=== PATIENT | male | born 1995 | race Caucasian/White ===

== ENCOUNTER 2017-09-01 00:11 | Emergency (ER) | payer OTHER ==
[2017-09-01 00:29] VITALS: BP 120/98; PULSE 59; TEMP 97.3; BMI 28.7
--- NOTE | 2017-09-01 00:49 | PDOC ---
History of Present Illness <Matt Morenoashleigh Vogt - Last Filed: 09/01/17 00:48> - History of Present Illness Initial Comments: 09/01/17 00:53 Patient is a 22M, with no significant PMHx, who presents with epigastric pain for 1 month. Patient states hes been having abdominal pain with associated nausea for 1 month but it has significantly worsened over the past couple of hours. Patient describes hie abdominal pain as a sharp, burning, twisting sensation that does not radiate. He has been prescribed Zantac by his PCP. Today he experienced 1 episode of vomit. Denies fever, chills, rhinorrhea, cough. PCP: Fantasma Esquivel Surgical Hx: denies Allergies: denies Social Hx: Marijuana use (2x/every 2 weeks) <Leeann Grissom - Last Filed: 09/01/17 00:53> <Nisha Brown - Last Filed: 09/01/17 05:58> - General Chief Complaint: Pain, Acute Stated Complaint: ABD PAIN Time Seen by Provider: 09/01/17 00:35 Past History - Suicide/Smoking/Psychosocial Hx Smoking History: Never smoked Have you smoked in the past 12 months: No Information on smoking cessation initiated: No Hx Alcohol Use: No Drug/Substance Use Hx: No Substance Use Type: None <Matt Morenoashleigh Vogt - Last Filed: 09/01/17 00:48> <Leeann Grissom - Last Filed: 09/01/17 00:53> <Nisha Brown - Last Filed: 09/01/17 05:58> - Past Medical History Allergies/Adverse Reactions: Allergies Allergy/AdvReac Type Severity Reaction Status Date / Time No Known Allergies Allergy Verified 09/01/17 00:27 Home Medications: Ambulatory Orders Ondansetron [Zofran Odt -] 4 mg SL TID #10 od.tablet 11/10/14 Ranitidine [Zantac -] 150 mg PO HS #10 tablet 11/10/14 Review of Systems - Review of Systems Comments:: 09/01/17 00:53 CONSTITUTIONAL: Absent: fever, no chills, no fatigue EYES: Absent: visual changes ENT: Absent: ear pain, no sore throat CARDIOVASCULAR: Absent: chest pain, no palpitations RESPIRATORY: Absent: cough, no SOB GI: Present: abdominal pain, nausea, vomit (1 episode) Absent: no constipation, no diarrhea GENITOURINARY: Absent: dysuria, no frequency, no hematuria MUSCULOSKELETAL: Absent: back pain, no arthralgia, no myalgia SKIN: Absent: rash NEURO: Absent: headache <Leeann Grissom - Last Filed: 09/01/17 00:53> *Physical Exam - Vital Signs Last Vital Signs Temp Pulse Resp BP Pulse Ox 97.3 F L 59 L 20 120/98 99 09/01/17 00:28 09/01/17 00:28 09/01/17 00:28 09/01/17 00:28 09/01/17 00:28 <Jennifer Moreno - Last Filed: 09/01/17 00:48> - Vital Signs Last Vital Signs Temp Pulse Resp BP Pulse Ox 97.3 F L 59 L 20 120/98 99 09/01/17 00:28 09/01/17 00:28 09/01/17 00:28 09/01/17 00:28 09/01/17 00:28 - Physical Exam Comments: 09/01/17 00:55 GENERAL: Well-appearing, well-nourished. No apparent distress. HEENT: Normocephalic, atraumatic. PERRL, EOM intact. CARDIOVASCULAR: Normal S1, S2. Regular rate and rhythm. PULMONARY: Clear to auscultation bilaterally. ABDOMEN: Soft, non-distended, non-tender.Epigastric discomfort. EXTREMITIES: Normal ROM in all four extremities. No gross deformities. SKIN: Warm, dry. No rash NEUROLOGICAL: No focal neurological deficits. <Leeann Grissom - Last Filed: 09/01/17 00:53> - Vital Signs Last Vital Signs Temp Pulse Resp BP Pulse Ox 97.3 F L 59 L 20 120/98 99 09/01/17 00:28 09/01/17 00:28 09/01/17 00:28 09/01/17 00:28 09/01/17 00:28 <Nisha Brown - Last Filed: 09/01/17 05:58> ED Treatment Course - LABORATORY CBC & Chemistry Diagram: 09/01/17 01:03 09/01/17 01:03 - ADDITIONAL ORDERS Additional order review: Laboratory Results 09/01/17 09/01/17 01:17 01:03 Sodium 141 Potassium 4.0 Chloride 103 Carbon Dioxide 31 Anion Gap 7 L BUN 17 Creatinine 1.0 D Creat Clearance w eGFR > 60 Random Glucose 100 Calcium 9.8 Total Bilirubin 2.0 H D AST 24 D ALT 41 D Alkaline Phosphatase 80 D Total Protein 8.2 Albumin 4.9 Lipase 256 Urine Color Yellow Urine Appearance Cloudy Urine pH 8.0 D Ur Specific [place] 1.023 Urine Protein Negative Urine Glucose (UA) Negative Urine Ketones Negative Urine Blood Negative Urine Nitrite Negative Urine Bilirubin Negative Urine Urobilinogen Negative Ur Leukocyte Esterase Negative 09/01/17 01:03 RBC 5.51 MCV 86.3 MCHC 33.7 RDW 13.5 MPV 8.9 Neutrophils % 65.9 Lymphocytes % 23.5 D Monocytes % 8.3 Eosinophils % 1.7 D Basophils % 0.6 - Medications Given in the ED: ED Medications Discontinued Medications Generic Name Dose Route Start Last Admin Trade Name Freq PRN Reason Stop Dose Admin Diphenhydramine HCl 25 mg 09/01/17 01:57 09/01/17 02:10 Benadryl Injection - IVPUSH 09/01/17 01:58 25 mg ONCE ONE Administration Metoclopramide HCl 10 mg 09/01/17 01:57 09/01/17 02:10 Reglan Injection - IVPUSH 09/01/17 01:58 10 mg ONCE ONE Administration Ondansetron HCl 4 mg 09/01/17 00:52 09/01/17 01:42 Zofran Injection IVPUSH 09/01/17 00:53 4 mg ONCE ONE Administration <Nisha Brown - Last Filed: 09/01/17 05:58> Medical Decision Making - Medical Decision Making 09/01/17 03:42 Patient Name: PEYMAN TURNER THIS IS A PRELIMINARY REPORT FROM [facility] DATE OF SERVICE: 2017-09-01 02:21:48 IMAGES: 44 EXAM: ABDOMEN US -LIMITED HISTORY: Epigastric pain and vomiting COMPARISON: None. FINDINGS: Fatty liver No echogenic gallstones, gallbladder wall thickening, or pericholecystic fluid Normal common bile duct The pancreas, aorta, and right kidney are unremarkable No ascites IMPRESSION: 1. Fatty liver, otherwise, unremarkable study THIS DOCUMENT HAS BEEN ELECTRONICALLY SIGNED 09/01/17 05:56 Pt states that he has epigastric pain. Imaging and exam and labs normal. Pt likely has gastritis. All he ate was sushi for the entire day yesterday. I explained to the patient that he is suffering with gastritis and that she should follow with GI specialist and take tums and start eating normal amounts of food form now on. <Nisha Brown - Last Filed: 09/01/17 05:58> *DC/Admit/Observation/Transfer <Jennifer Moreno - Last Filed: 09/01/17 00:48> <Leeann Grissom - Last Filed: 09/01/17 00:53> - Discharge Dispostion Admit: No <BrownNisha - Last Filed: 09/01/17 05:58> Diagnosis at time of Disposition: Nausea and vomiting, Gastritis - Discharge Dispostion Disposition: HOME Condition at time of disposition: Stable - Referrals Referrals: Fantasma Esquivel [Primary Care Provider] - Brad Morrell MD [Staff Physician] - - Patient Instructions Printed Discharge Instructions: Viral Gastroenteritis, [place] Diet, DI for Gastritis - Post Discharge Activity Forms/Work/School Notes: Back to Work
[2017-09-01] MEDS ORDERED: ONDANSETRON 4 MG/2 ML VIAL IVPUSH ONE (00:52)
[2017-09-01 01:21] LABS: BASO % 0.6 % (0-2.0); EOS % 1.7 % (0-4.5); HEMATOCRIT 47.6 % (35.4-49); LYMPH % 23.5 % (8-40); MCH 29.1 pg (25.7-33.7); MCHC 33.7 g/dl (32.0-35.9); MEAN CELL VOLUME 86.3 fl (80-96); MEAN PLT VOLUME 8.9 fl (7.5-11.1); MONO % 8.3 % (3.8-10.2); NEUT % 65.9 % (42.8-82.8); PLATELET COUNT 249 K/MM3 (134-434); RBC 5.51 M/mm3 (4.00-5.60); RDW 13.5 % (11.9-15.9); WHITE BLOOD COUNT 10.7 K/mm3 (4.0-10.0)
[2017-09-01] MEDS ORDERED: ONDANSETRON 4 MG/2 ML VIAL ONE (01:21)
[2017-09-01 01:48] LABS: URINE APPEARANCE CLOUDY; URINE BILIRUBIN NEGATIVE (NEGATIVE); URINE BLOOD NEGATIVE (NEGATIVE); URINE COLOR YELLOW; URINE GLUCOSE (UA) NEGATIVE (NEGATIVE); URINE KETONE NEGATIVE (NEGATIVE); URINE LEUK ESTERASE NEGATIVE (NEGATIVE); URINE NITRITE NEGATIVE (NEGATIVE); URINE PROTEIN NEGATIVE (NEGATIVE); URINE UROBILINOGEN NEGATIVE mg/dL (0.2-1.0)
[2017-09-01 01:54] LABS: ALBUMIN 4.9 g/dl (3.4-5.0); ALK PHOS 80 U/L (45-117); ANION GAP 7 (8-16); BLOOD UREA NITROGEN 17 mg/dL (7-18); CALCIUM 9.8 mg/dL (8.5-10.1); CHLORIDE 103 mmol/L (98-107); CO2 31 mmol/L (21-32); GLUCOSE,RANDOM 100 mg/dL (74-106); SGOT/AST 24 U/L (15-37); SGPT/ALT 41 U/L (12-78); SODIUM 141 mmol/L (136-145); TOT PROT 8.2 g/dl (6.4-8.2)
[2017-09-01] MEDS ORDERED: METOCLOPRAMIDE HCL INJECTION 10 MG/2 ML VIAL IVPUSH ONE (01:57)
[2017-09-01 02:02] LABS: LIPASE 256 U/L (73-393)
[2017-09-01] MEDS ORDERED: METOCLOPRAMIDE HCL INJECTION 10 MG/2 ML VIAL ONE (02:02)
== END 2017-09-01 04:14 | disposition home or self-care (01) ==
LOC: JER 00:11
PROC: 3E033GC Introduction of Other Therapeutic Substance into Peripheral Vein, Percutaneous Approach (ICD-10-PCS; principal; 2017-09-01)
DX: K29.70 Gastritis, unspecified, without bleeding (principal)
CPT/HCPCS: 36415; 76705-TC; 80053; 81003; 83690; 85025; 99282-25